=== PATIENT | female | born 1985 | race Two or more races ===

== ENCOUNTER → 2020-08-06 | Day surgery (SDC) | payer OTHER ==
[~2020-08-06] MED LIST: KETO10TA2 PO
== END | disposition home or self-care (01) ==
LOC: EDSTATUS 07-31 10:15 → CIR.AMB 10:15
PROVIDERS: ATTEND Obstetrics & Gynecology
DX: N84.0 Polyp of corpus uteri (principal); Z20.828 Contact with and (suspected) exposure to other viral communicable diseases